=== PATIENT | female | born 1980 | race Caucasian/White ===

== ENCOUNTER → 2022-12-04 | Outpatient (CLI) | payer OTHER | END | disposition home or self-care (01) | LOC: TOM 07:37 | PROVIDERS: ATTEND Surgery | DX: K56.609 Unspecified intestinal obstruction, unspecified as to partial versus complete obstruction (principal) ==

== ENCOUNTER 2023-03-11 15:37 | Outpatient (CLI) | payer OTHER | END 2023-03-11 15:45 | disposition home or self-care (01) | LOC: RAD 15:37 | DX: K59.00 Constipation, unspecified (principal) ==